=== PATIENT | female | born 1965 | race Caucasian/White ===

== ENCOUNTER 2020-12-02 06:35 | Day surgery (SDC) | payer MEDICARE, OTHER ==
[~2020-12-02] VITALS: Ht 157.5 cm; Wt 61.5 kg
[~2020-12-02 06:35] MED LIST: SODIUM CHLORIDE 0.9% 1,000 ML IV ONE; SODIUM CHLORIDE 0.9% 1,000 ML ONE
[2020-12-02] MEDS ORDERED: ALBUTEROL SULFATE 2.5 MG/0.5 ML NEB SOLUTION NEB ONE (06:36)
[2020-12-02] MEDS ORDERED: LIDOCAINE 2% 30 ML JELLY TP ONE (06:36)
[2020-12-02] MEDS ORDERED: LIDOCAINE 4% 50 ML SOLUTION TP ONE (06:36)
[2020-12-02] MEDS ORDERED: BENZOCAINE 20% 50 MCG/SPRAY 57 GM TP ONE (06:36)
[2020-12-02] MEDS ORDERED: MONT-35 PO (06:57)
[2020-12-02] MEDS ORDERED: NETA2.5D OU (06:57)
[2020-12-02] MEDS ORDERED: HYDR200T83 PO (06:57)
[2020-12-02] MEDS ORDERED: BUDE10.2 IH (06:57)
[2020-12-02] MEDS ORDERED: COSO10OS OU (06:57)
[2020-12-02] MEDS ORDERED: FAMO20 PO (06:57)
[2020-12-02] MEDS ORDERED: ALBU8HFA IH (06:57)
[2020-12-02] MEDS ORDERED: SULF500T60 PO (06:57)
[2020-12-02] MEDS ORDERED: XALA2.5OS OS (06:57)
[2020-12-02] MEDS ORDERED: HYDR25TA2 PO (07:01)
[2020-12-02] MEDS ORDERED: LISI-893 PO (07:01)
[2020-12-02] MEDS ORDERED: MIDAZOLAM HCL 2 MG/2 ML VIAL ONE (07:49)
[2020-12-02] MEDS ORDERED: FentaNYL CITRATE PF 100 MCG/2 ML VIAL ONE (07:49)
[2020-12-02] MEDS ORDERED: MethylPREDNISolone SOD SUCC 125 MG/2 ML VIAL IVP ONE (09:00)
[2020-12-02] MEDS ORDERED: MethylPREDNISolone SOD SUCC 125 MG/2 ML VIAL ONE (09:36)
[2020-12-02] MEDS ORDERED: OXYGEN THERAPY IH SCH (20:00)
== END 2020-12-02 11:00 | disposition home or self-care (01) ==
LOC: SURGERY 06:35
PROVIDERS: ATTEND Internal Medicine Critical Care Medicine
DX: B37.0 Candidal stomatitis (principal); T78.3XXA Angioneurotic edema, initial encounter; Y83.8 Other surgical procedures as the cause of abnormal reaction of the patient, or of later complication, without mention of misadventure at the time of the procedure; I10 Essential (primary) hypertension; Z98.890 Other specified postprocedural states; Z79.899 Other long term (current) drug therapy; H40.9 Unspecified glaucoma
CPT/HCPCS: 31623; 31624; 71045; 87015; 87070; 87101; 87205; 87206; 87220; 88184; 88185; 88312; J2250; J2930; J3010; J7030; J7613; Z7610